=== PATIENT | male | born 1980 | race Hispanic/Latino ===

== ENCOUNTER 2019-01-03 14:04 | Emergency (ER) | payer OTHER | END 2019-01-03 16:22 | disposition home or self-care (01) | LOC: EDH 14:04 | DX: S86.011A Strain of right Achilles tendon, initial encounter (principal); Z87.891 Personal history of nicotine dependence; X58.XXXA Exposure to other specified factors, initial encounter; Y93.67 Activity, basketball; Y92.320 Baseball field as the place of occurrence of the external cause; Y99.8 Other external cause status | CPT/HCPCS: 29515; 76882 ==